=== PATIENT | male | born 2005 | race African-American/Black ===

== ENCOUNTER 2023-06-23 17:30 | Emergency (ER) | payer MEDICAID ==
--- NOTE | 2023-06-23 17:34 | ERPHSYRPT ---
- History of Present Illness Time Seen by Provider: 06/23/23 17:33 Source: patient, family Exam Limitations: no limitations Physician History: This is a 17-year-old -[place] male who presents with flulike symptoms including mild headache body aches joint aches and nasal congestion with a mild cough that began yesterday. Patient does attend college at [employer] and is exposed to multiple people and some of which have flu like symptoms. He has had no nausea vomiting or diarrhea symptoms. Timing/Duration: yesterday Cough Quality/Degree: mild Possible Cause: no prior episodes Modifying Factors: Improves With: coughing Associated Symptoms: muscle aches, nasal congestion Allergies/Adverse Reactions: No Known Drug Allergies Allergy (Unverified 06/23/23 17:39) Travel Risk - International Travel Have you traveled outside of the country in past 3 weeks: No - Coronavirus Screening Are you exhibiting any of the following symptoms?: Yes Close contact with a COVID-19 positive Pt in past 14-21 Days: Yes - Review of Systems Constitutional: No Symptoms Eyes: No Symptoms Ears, Nose, & Throat: No Symptoms Respiratory: Cough Cardiac: No Symptoms Abdominal/Gastrointestinal: No Symptoms Genitourinary Symptoms: No Symptoms Musculoskeletal: Arthralgias, Myalgias Skin: No Symptoms Neurological: No Symptoms Psychological: No Symptoms Endocrine: No Symptoms Hematologic/Lymphatic: No Symptoms Immunological/Allergic: No Symptoms All Other Systems: Reviewed and Negative - Past Medical History Pertinent Past Medical History: No - Past Surgical History Past Surgical History: No - Nursing Vital Signs Nursing Vital Signs: Initial Vital Signs Temperature 99.2 F 06/23/23 17:40 Pulse Rate 106 H 06/23/23 17:40 Respiratory Rate 22 06/23/23 17:40 Blood Pressure 130/78 06/23/23 17:40 O2 Sat by Pulse Oximetry 100 06/23/23 17:40 Pain Scale Pain Intensity 4 - Physical Exam General Appearance: no apparent distress Eye Exam: PERRL/EOMI, eyes nml inspection Ears, Nose, Throat Exam: normal ENT inspection, moist mucous membranes Neck Exam: normal inspection, non-tender, supple, full range of motion Respiratory Exam: normal breath sounds, lungs clear, airway intact, No chest tenderness, No respiratory distress Cardiovascular Exam: tachycardia Gastrointestinal/Abdomen Exam: soft, normal bowel sounds, No tenderness Rectal Exam: not done Back Exam: normal inspection, normal range of motion, No CVA tenderness, No vertebral tenderness Extremity Exam: normal inspection, normal range of motion, pelvis stable Neurologic Exam: alert, oriented x 3, cooperative, 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 tested, normal mood/affect, nml cerebellar function, nml station & gait, sensation nml Skin Exam: normal color, warm, dry Lymphatic Exam: No adenopathy SpO2 Interpretation: normal O2 Delivery: Room Air - Course Nursing assessment & vital signs reviewed: Yes Ordered Tests: Active Orders 24 hr Category Date Time Status CHEST 1 VIEW (PORTABLE) Stat Exams 06/23/23 18:27 Taken Medication Summary Discontinued Medications Generic Name Dose Route Start Last Admin Trade Name Freq PRN Reason Stop Dose Admin Hydrocodone Bitart/Acetaminophen 10 ml 06/23/23 18:27 06/23/23 18:44 Hydrocodone/Acetaminophen 5 Ml Udcup PO 06/23/23 18:28 10 ml STAT STA Administration Hydrocodone Bitart/Acetaminophen Confirm 06/23/23 18:38 Hydrocodone/Acetaminophen 5 Ml Udcup Administered 06/23/23 18:39 Dose 10 ml .ROUTE .STK-MED ONE Oseltamivir Phosphate 75 mg 06/23/23 18:32 06/23/23 18:43 Oseltamivir 75 Mg Cap PO 06/23/23 18:33 75 mg STAT ONE Administration Oseltamivir Phosphate Confirm 06/23/23 18:38 Oseltamivir 75 Mg Cap Administered 06/23/23 18:39 Dose 75 mg PO .STK-MED ONE Prednisone 20 mg 06/23/23 18:27 06/23/23 18:43 Prednisone 20 Mg Tablet PO 06/23/23 18:28 20 mg STAT ONE Administration Prednisone Confirm 06/23/23 18:38 Prednisone 20 Mg Tablet Administered 06/23/23 18:39 Dose 20 mg .ROUTE .STK-MED ONE Lab/Rad Data: Laboratory Results 06/23/23 Range/Units 17:45 Influenza Type A Ag NEGATIVE (NEGATIVE) Influenza Type B Ag POSITIVE (NEGATIVE) RSV (PCR) NEGATIVE (NEGATIVE) SARS-CoV-2 (PCR) NEGATIVE (NEGATIVE) - Progress Progress: unchanged Air Movement: good Progress Note: 06/23/23 18:36 This patient's medical issue is 1 of low complexity. Level complex in the work- up performed is based on review the patient's past medical history, review the patient's medication list, review the patient's drug allergy list, history present as and physical findings on examination. This patient's work-up includes viral swabs and chest x-ray. I reviewed the results and interpreted them. Patient has influenza B. We will provide the patient with hydrocodone elixir, prednisone 20 mg orally and Tamiflu 75 mg here. I will remotely send the same medication to his pharmacy. We are awaiting the chest x-ray results. 06/23/23 18:47 Chest x-ray was interpreted by me. There is no evidence of any acute cardiopulmonary process. Blood Culture(s) Obtained: No Antibiotics given: No Counseled pt/family regarding: lab results, diagnosis, need for follow-up, rad results Medical Desision Making - Diagnostic Testing Diagnostic test were ordered, analyzed, and reviewed by me: Yes Radiological Interpretation: Interpreted by me, Teleradiologist Report - Risk of complications The pt has a mod risk of morbidity or mortality based on: Need for prescription drug management - Departure Departure Disposition: Home Clinical Impression: Influenza B Condition: Stable Critical Care Time: No Additional Instructions: Drink plenty of fluids. Take your medication as prescribed. Follow-up with your primary care provider for further evaluation management. Prescriptions: Prednisone 5 mg [Deltasone 5 mg] 5 mg PO TID #12 tablet Hydrocodone/Acetaminophen [Hydrocodone-Acetamn 7.5-325/15] 10 ml PO Q8H PRN #120 ml MDD 30 ml PRN Reason: Cough Oseltamivir 75 mg [Tamiflu 75MG Capsule] 75 mg PO BID #10 cap
[2023-06-23 18:25] LABS: INFLUENZA A NEGATIVE (NEGATIVE); RESPIRATORY SYNCTIAL VIRUS NEGATIVE (NEGATIVE); SARS-CoV-2 Xpert Express NEGATIVE (NEGATIVE)
[2023-06-23] MEDS ORDERED: HYDROCODONE-ACETAMIN 2.5-108/5 ML SOLUTION PO STA (18:27)
[2023-06-23] MEDS ORDERED: DELTASONE 20 MG PO ONE (18:27)
[2023-06-23 18:28] LABS: INFLUENZA B POSITIVE (NEGATIVE)
[2023-06-23] MEDS ORDERED: Tamiflu 75MG Capsule PO ONE ×2 (18:32→18:38)
[2023-06-23] MEDS ORDERED: HYDROCODONE-ACETAMIN 2.5-108/5 ML SOLUTION ONE (18:38)
[2023-06-23] MEDS ORDERED: DELTASONE 20 MG ONE (18:38)
[2023-06-23 18:46] VITALS: TEMP 99.1; O2SAT 99
[2023-06-23 19:16] VITALS: BP 124/58; PULSE 108; RESP 18
--- NOTE | 2023-06-24 08:42 | XRAY ---
Indication: Cough. Comparison: None Portable apical lordotic chest demonstrates normal heart, lungs, and bony thorax.
== END 2023-06-23 19:13 | disposition home or self-care (01) ==
LOC: ED 17:30
DX: J10.1 Influenza due to other identified influenza virus with other respiratory manifestations (principal); R51.9 Headache, unspecified; M79.10 Myalgia, unspecified site; R09.81 Nasal congestion; R05.1 Acute cough; Z79.52 Long term (current) use of systemic steroids; Z79.891 Long term (current) use of opiate analgesic
CPT/HCPCS: 0241U; 71045; 99283; A9270-GY